=== PATIENT | male | born 1995 | race African-American/Black ===

== ENCOUNTER → 2016-04-14 22:15 | Emergency (ER) | payer SELFPAY | END | disposition left against medical advice (07) | LOC: CED 22:15 | DX: Z53.21 Procedure and treatment not carried out due to patient leaving prior to being seen by health care provider (principal) ==

== ENCOUNTER 2016-04-15 18:17 | Emergency (ER) | payer SELFPAY ==
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
== END 2016-04-15 18:37 | disposition home or self-care (01) ==
LOC: CFTX 18:17
DX: S06.0X9A Concussion with loss of consciousness of unspecified duration, initial encounter (principal); S80.02XA Contusion of left knee, initial encounter; F17.210 Nicotine dependence, cigarettes, uncomplicated; V43.52XA Car driver injured in collision with other type car in traffic accident, initial encounter
CPT/HCPCS: 70450; 73560; 99284